=== PATIENT | female | born 1990 | race Two or more races ===

== ENCOUNTER 2022-07-31 06:33 | Outpatient (CLI) | payer OTHER ==
[2022-07-31] MEDS ORDERED: PRENATAL CAPLE1 EAC1 PO (06:38)
== END 2022-07-31 10:40 | disposition home or self-care (01) ==
LOC: OBS/DEL 06:33
PROVIDERS: ATTEND Obstetrics & Gynecology
DX: O26.893 Other specified pregnancy related conditions, third trimester (principal); O36.8130 Decreased fetal movements, third trimester, not applicable or unspecified; Z3A.34 34 weeks gestation of pregnancy

== ENCOUNTER 2022-08-28 13:00 | Inpatient (IN) | payer OTHER ==
[~2022-08-28] VITALS: Ht 162.6 cm; Wt 83.5 kg
[~2022-08-28 13:00] MED LIST: PRENATAL CAPLE1 EAC1 PO
== END 2022-09-18 14:12 | disposition home or self-care (01) | DRG 768 ==
LOC: OB/GYN 09-01 13:00 → LDR 09-16 10:38 → OB/GYN 09-16 17:01
PROVIDERS: ADMIT Obstetrics & Gynecology Maternal & Fetal Medicine; ATTEND Obstetrics & Gynecology Maternal & Fetal Medicine
PROC: 10E0XZZ Delivery of Products of Conception, External Approach (ICD-10-PCS; principal; 2022-09-16)
PROC: 0DQP0ZZ Repair Rectum, Open Approach (ICD-10-PCS; 2022-09-16)
PROC: 4A1HXCZ Monitoring of Products of Conception, Cardiac Rate, External Approach (ICD-10-PCS; 2022-09-16)
DX: O70.3 Fourth degree perineal laceration during delivery (principal); Z37.0 Single live birth; Z3A.40 40 weeks gestation of pregnancy; Z20.822 Contact with and (suspected) exposure to COVID-19

== ENCOUNTER 2022-09-10 16:44 | Outpatient (CLI) | payer OTHER | END 2022-09-10 18:10 | disposition home or self-care (01) | LOC: NST 16:44 | PROVIDERS: ATTEND Obstetrics & Gynecology Maternal & Fetal Medicine | DX: Z34.83 Encounter for supervision of other normal pregnancy, third trimester (principal) ==

== ENCOUNTER 2022-09-14 11:03 | Outpatient (CLI) | payer OTHER | END 2022-09-14 11:19 | disposition home or self-care (01) | LOC: NST 11:03 | PROVIDERS: ATTEND Obstetrics & Gynecology Maternal & Fetal Medicine | DX: Z34.83 Encounter for supervision of other normal pregnancy, third trimester (principal) ==

== ENCOUNTER 2024-05-17 03:07 | Outpatient (CLI) | payer OTHER ==
[~2024-05-17] VITALS: Ht 162.6 cm; Wt 78.0 kg
[2024-05-17 02:40] VITALS: BP 103/69
[2024-05-17] MEDS ORDERED: MAGNESIUM SULFATE IN WATER 500 ML IV SCH (03:15)
[2024-05-17] MEDS ORDERED: BETAMETHASONE ACETATE,SOD PHOS 30 MG/5 ML ML IM SCH ×2 (03:15→09:00)
[2024-05-17] MEDS ORDERED: MAGNESIUM SULFATE IN WATER 4 GM/100 ML PIGGYBACK IV STA (03:15)
[2024-05-17] MEDS ORDERED: MORPHINE SULFATE 4 MG/ML CARTRIDGE IV PRN (03:15)
[2024-05-17] MEDS ORDERED: ADULT LOW DOSE81 M1 PO (03:19)
[2024-05-17] MEDS ORDERED: IRON236 MG PO (03:19)
[2024-05-17] MEDS ORDERED: RINGERS SOLUTION,LACTATED 1,000 ML IV SCH (03:30)
[2024-05-17 03:40] LABS: HEMATOCRIT 32.6 % (36.0-45.00); HEMOGLOBIN 11.3 g/dL (12.0-15.00); MEAN CELL VOLUME 83.6 fL (80.00-100.00); MEAN CORPUSCULAR HEMOGLOBIN 29.1 pg (27.00-32.0); MEAN CORPUSCULAR HGB CONC 34.7 g/dl (32.0-36.0); PLATELET COUNT 199 K/uL (150-450); RED CELL DISTRIBUTION WIDTH 13.7 % (11.5-14.5); URINE APPEARANCE Cloudy; URINE BACTERIA 395.5 uL (0.0-1933); URINE BILIRRUBIN Negative (NEGATIVE); URINE BLOOD Negative; URINE COLOR Yellow; URINE EPITHELIAL CELLS 17.1 uL (0.0-38.8); URINE GLUCOSE Negative (NEGATIVE); URINE LEUKOCYTE Trace; URINE NITRATE Negative; URINE PROTEIN Negative (NEGATIVE); URINE RBC 2.9 uL (0.0-20.8); URINE UROBILINOGEN 0.2 E.U./dl; URINE WBC 38.9 uL (0.0-23.2)
[2024-05-17 04:03] LABS: URINE KETONE 40 (NEGATIVE)
[2024-05-17 06:06] VITALS: BP 108/65; O2SAT 98
[2024-05-17 12:30] VITALS: BP 115/71
[2024-05-17 15:21] VITALS: BP 116/76
[2024-05-17 19:23] VITALS: BP 108/71
[2024-05-17] MEDS ORDERED: NIFEDIPINE 30 MG TAB.SA.OSM PO SCH (21:00)
[2024-05-17 23:09] VITALS: BP 101/60
[2024-05-18 03:10] VITALS: BP 92/50; O2SAT 99
[2024-05-18 06:22] VITALS: BP 102/53; O2SAT 98
[2024-05-18 07:35] VITALS: BP 108/62; O2SAT 99
[2024-05-18 11:27] VITALS: BP 125/75; O2SAT 97
[2024-05-19] MEDS ORDERED: TYLENOL325 MG PO (00:53)
[2024-05-19] MEDS ORDERED: PROCARDIA PO (00:55)
== END 2024-05-18 11:42 | disposition home or self-care (01) ==
LOC: OBS/DEL 03:07 → LDR 03:07 → OBS/DEL 05-18 11:42 → LDR 05-18 11:42 → EDSTATUS 06-06 14:48
PROVIDERS: Obstetrics & Gynecology; ATTEND Obstetrics & Gynecology
DX: O47.03 False labor before 37 completed weeks of gestation, third trimester (principal); Z3A.32 32 weeks gestation of pregnancy

== ENCOUNTER 2024-05-18 23:41 | Inpatient (IN) | payer OTHER ==
[~2024-05-18] VITALS: Ht 162.6 cm; Wt 78.0 kg
[~2024-05-18 23:41] MED LIST changes: +ADULT LOW DOSE81 M1 PO; +IRON236 MG PO
[2024-05-18] MEDS ORDERED: ACETAMINOPHEN 500 MG GEL..CAP PO ONE (23:45)
[2024-05-18] MEDS ORDERED: MAGNESIUM SULFATE IN WATER 100 ML IV ONE (23:45)
[2024-05-18] MEDS ORDERED: MAGNESIUM SULFATE IN WATER 500 ML IV SCH (23:45)
[2024-05-19] MEDS ORDERED: TYLENOL325 MG PO (00:53)
[2024-05-19] MEDS ORDERED: PROCARDIA PO (00:55)
[2024-05-19] MEDS ORDERED: RINGERS SOLUTION,LACTATED 1,000 ML IV SCH (01:00)
[2024-05-19] MEDS ORDERED: CEFOXITIN SODIUM 2,000 MG VIAL IV SCH (01:00)
[2024-05-19 01:34] LABS: HEMATOCRIT 30.3 % (36.0-45.00); HEMOGLOBIN 10.4 g/dL (12.0-15.00); MEAN CELL VOLUME 84.3 fL (80.00-100.00); MEAN CORPUSCULAR HEMOGLOBIN 28.9 pg (27.00-32.0); MEAN CORPUSCULAR HGB CONC 34.3 g/dl (32.0-36.0); PLATELET COUNT 197 K/uL (150-450); RED BLOOD COUNT 3.59 M/uL (4.00-6.00); RED CELL DISTRIBUTION WIDTH 13.8 % (11.5-14.5)
[2024-05-19 01:58] LABS: ALBUMIN 2.3 gm/dL (3.4-5.0); BILIRUBIN TOTAL 0.39 mg/dL (0.3-1.2); CALCIUM 8.1 mg/dL (8.5-10.1); CREATININE SERUM 0.62 mg/dL (0.55-1.02); GFR 109.54; GLOBULINA 3.2 G/DL (2.4-3.5); POTASSIUM 3.22 mEq/L (3.5-5.1); TOTAL PROTEIN 5.5 gm/dL (6.4-8.2)
[2024-05-19 02:18] LABS: INR < 0.93; PARTIAL THROMBOPLASTIN TIME 26.2 SECONDS (22.0-34.0); PROTHROMBIN TIME 9.4 SECONDS (9.0-11.5)
[2024-05-19] MEDS ORDERED: PNV,CALCIUM 72/IRON/FOLIC ACID 1 TAB TABLET PO SCH (14:28)
[2024-05-19] MEDS ORDERED: ACETAMINOPHEN 500 MG GEL..CAP PO STA (14:34)
[2024-05-19] MEDS ORDERED: CEFTRIAXONE SODIUM 1,000 MG VIAL IV SCH ×2 (14:45→17:00)
[2024-05-19 17:11] LABS: PH,URINE 7.5 (5.0-8.0); URINE APPEARANCE Cloudy; URINE BILIRRUBIN Negative (NEGATIVE); URINE BLOOD Negative; URINE COLOR Yellow; URINE GLUCOSE Negative (NEGATIVE); URINE KETONE Negative (NEGATIVE); URINE LEUKOCYTE Negative; URINE NITRATE Negative; URINE PROTEIN 30 (NEGATIVE)
[2024-05-19 17:17] LABS: URINE BACTERIA 22.6 uL (0.0-1933); URINE EPITHELIAL CELLS 22.8 uL (0.0-38.8); URINE RBC 19.5 uL (0.0-20.8); URINE WBC 14.3 uL (0.0-23.2)
[2024-05-19 17:31] LABS: URINE CAST 0.91 uL (0.0-1.40)
[2024-05-19] MEDS ORDERED: ACETAMINOPHEN 500 MG GEL..CAP PO PRN (20:00)
[2024-05-19] MEDS ORDERED: CYCLOBENZAPRINE HCL 5 MG TABLET PO ONE (21:00)
[2024-05-19] MEDS ORDERED: FAMOTIDINE/PF 20 MG in 0.9 % SODIUM CHLORIDE 8 ML IV PUSH SCH (21:00)
[2024-05-19] MEDS ORDERED: FAMOTIDINE/PF 20 MG/2 ML VIAL ONE (22:32)
[2024-05-20 08:06] LABS: ALBUMIN 2.1 gm/dL (3.4-5.0); BILIRUBIN TOTAL 0.42 mg/dL (0.3-1.2); CALCIUM 8.4 mg/dL (8.5-10.1); CREATININE SERUM 0.64 mg/dL (0.55-1.02); GFR 105.6; GLOBULINA 3.4 G/DL (2.4-3.5); POTASSIUM 3.3 mEq/L (3.5-5.1); TOTAL PROTEIN 5.5 gm/dL (6.4-8.2)
[2024-05-20] MEDS ORDERED: FAMOTIDINE/PF 20 MG/2 ML VIAL ONE (08:11)
[2024-05-20 08:32] LABS: HEMOGLOBIN 11.3 g/dL (12.0-15.00); MEAN CELL VOLUME 84.1 fL (80.00-100.00); MEAN CORPUSCULAR HEMOGLOBIN 28.8 pg (27.00-32.0); MEAN CORPUSCULAR HGB CONC 34.3 g/dl (32.0-36.0); PLATELET COUNT 221 K/uL (150-450); RED BLOOD COUNT 3.93 M/uL (4.00-6.00); RED CELL DISTRIBUTION WIDTH 13.9 % (11.5-14.5)
[2024-05-21 07:59] LABS: HEMATOCRIT 32.1 % (36.0-45.00); MEAN CELL VOLUME 83.2 fL (80.00-100.00); MEAN CORPUSCULAR HEMOGLOBIN 28.5 pg (27.00-32.0); MEAN CORPUSCULAR HGB CONC 34.3 g/dl (32.0-36.0); PLATELET COUNT 194 K/uL (150-450); RED BLOOD COUNT 3.86 M/uL (4.00-6.00); RED CELL DISTRIBUTION WIDTH 13.9 % (11.5-14.5)
[2024-05-21 08:22] LABS: BILIRUBIN TOTAL 0.38 mg/dL (0.3-1.2); CALCIUM 8.5 mg/dL (8.5-10.1); CREATININE SERUM 0.53 mg/dL (0.55-1.02); GFR 131.27; GLOBULINA 3.4 G/DL (2.4-3.5); POTASSIUM 3.75 mEq/L (3.5-5.1); TOTAL PROTEIN 5.4 gm/dL (6.4-8.2)
== END 2024-05-21 13:46 | disposition home or self-care (01) | DRG 833 ==
LOC: LDR 23:41 → OB/GYN 05-20 14:09
PROVIDERS: Obstetrics & Gynecology; Obstetrics & Gynecology Gynecology; ADMIT Obstetrics & Gynecology Maternal & Fetal Medicine; ATTEND Obstetrics & Gynecology Maternal & Fetal Medicine
PROC: 4A1HXCZ Monitoring of Products of Conception, Cardiac Rate, External Approach (ICD-10-PCS; principal; 2024-05-18)
PROC: BT43ZZZ Ultrasonography of Bilateral Kidneys (ICD-10-PCS; 2024-05-19)
PROC: BW40ZZZ Ultrasonography of Abdomen (ICD-10-PCS; 2024-05-20)
DX: O26.893 Other specified pregnancy related conditions, third trimester (principal); R50.9 Fever, unspecified; Z3A.33 33 weeks gestation of pregnancy; Z20.822 Contact with and (suspected) exposure to COVID-19

== ENCOUNTER 2024-06-13 12:45 | Inpatient (IN) | payer OTHER ==
[~2024-06-13] VITALS: Ht 162.6 cm; Wt 80.7 kg
[~2024-06-13 12:45] MED LIST changes: +PROCARDIA PO; +TYLENOL325 MG PO
[2024-06-28 09:21] VITALS: BP 100/68
[2024-06-28] MEDS ORDERED: PRENATAL TABLE1 EAC1 PO (09:43)
[2024-06-28] MEDS ORDERED: OXYTOCIN 500 ML IV ONE (09:45)
[2024-06-28 10:00] LABS: HEMATOCRIT 35.1 % (36.0-45.00); HEMOGLOBIN 11.9 g/dL (12.0-15.00); MEAN CELL VOLUME 82.7 fL (80.00-100.00); MEAN CORPUSCULAR HEMOGLOBIN 28.1 pg (27.00-32.0); PLATELET COUNT 243 K/uL (150-450); RED BLOOD COUNT 4.25 M/uL (4.00-6.00); RED CELL DISTRIBUTION WIDTH 15.1 % (11.5-14.5)
[2024-06-28 10:26] LABS: INR < 0.93; PARTIAL THROMBOPLASTIN TIME 26.4 SECONDS (22.0-34.0); PROTHROMBIN TIME 10.1 SECONDS (9.0-11.5)
[2024-06-28 11:05] LABS: ALBUMIN 2.7 gm/dL (3.4-5.0); BILIRUBIN TOTAL 0.71 mg/dL (0.3-1.2); CALCIUM 9.1 mg/dL (8.5-10.1); CREATININE SERUM 0.72 mg/dL (0.55-1.02); GFR 92.18; GLOBULINA 3.7 G/DL (2.4-3.5); POTASSIUM 3.87 mEq/L (3.5-5.1); TOTAL PROTEIN 6.4 gm/dL (6.4-8.2)
[2024-06-28 11:37] VITALS: BP 104/68
[2024-06-28] MEDS ORDERED: ERYTHROMYCIN BASE OPHT 1GM EACH TUBE OP ONE ×2 (14:19→15:45)
[2024-06-28] MEDS ORDERED: OXYTOCIN 20 UNITS/1000ML RL PIGGYBAG IV ONE (14:20)
[2024-06-28] MEDS ORDERED: LIDOCAINE HCL 1% 10ML VIAL ONE (14:20)
[2024-06-28] MEDS ORDERED: CHLORHEXIDINE GLUCONATE 120 ML BOTTLE TOP ONE ×2 (14:20→15:45)
[2024-06-28 14:28] VITALS: BP 127/82
[2024-06-28] MEDS ORDERED: MORPHINE SULFATE 4 MG/ML VIAL IV ONE (14:30)
[2024-06-28 15:22] VITALS: BP 119/63; O2SAT 99
[2024-06-28] MEDS ORDERED: OXYTOCIN 1,000 ML IV SCH ×2 (15:45→17:15)
[2024-06-28] MEDS ORDERED: IBUprofen 400 MG TABLET PO PRN (17:15)
[2024-06-28] MEDS ORDERED: CHLORHEXIDINE GLUCONATE 120 ML BOTTLE TOP SCH (17:15)
[2024-06-28 19:50] VITALS: BP 119/77
[2024-06-29 02:31] VITALS: BP 100/55
[2024-06-29 06:34] LABS: HEMOGLOBIN 11.7 g/dL (12.0-15.00); MEAN CELL VOLUME 81.5 fL (80.00-100.00); MEAN CORPUSCULAR HEMOGLOBIN 28.1 pg (27.00-32.0); MEAN CORPUSCULAR HGB CONC 34.5 g/dl (32.0-36.0); PLATELET COUNT 206 K/uL (150-450); RED BLOOD COUNT 4.17 M/uL (4.00-6.00); RED CELL DISTRIBUTION WIDTH 15.2 % (11.5-14.5)
[2024-06-29 09:00] VITALS: BP 106/63
[2024-06-29] MEDS ORDERED: BENZOCAINE/MENTHOL 90 ML BOTTLE TOP SCH (09:00)
[2024-06-29 16:00] VITALS: BP 103/63
[2024-06-30] VITALS: BP 99/65
[2024-06-30 08:51] VITALS: BP 117/68
[2024-06-30 13:02] VITALS: BP 116/65
== END 2024-06-30 14:40 | disposition home or self-care (01) | DRG 807 ==
LOC: OB/GYN 06-28 09:13 → LDR 06-28 09:13 → OB/GYN 06-28 16:08
PROVIDERS: ADMIT Obstetrics & Gynecology; ATTEND Obstetrics & Gynecology
PROC: 10E0XZZ Delivery of Products of Conception, External Approach (ICD-10-PCS; principal; 2024-06-28)
PROC: 0KQM0ZZ Repair Perineum Muscle, Open Approach (ICD-10-PCS; 2024-06-28)
PROC: 4A1HXCZ Monitoring of Products of Conception, Cardiac Rate, External Approach (ICD-10-PCS; 2024-06-28)
DX: O70.1 Second degree perineal laceration during delivery (principal); Z37.0 Single live birth; Z3A.39 39 weeks gestation of pregnancy; Z20.822 Contact with and (suspected) exposure to COVID-19